=== PATIENT | male | born 1980 | race Caucasian/White ===

== ENCOUNTER → 2017-01-23 01:52 | Emergency (ER) | payer OTHER ==
[~2017-01-23 01:52] MED LIST: Haloperidol INJ IV/IM* 5 MG/ML AMP IM ONE; LORazepam INJ* 2 MG/ML 1 ML VIAL IM ONE; diPHENhydraMINE IV* 50 MG/ML 1 ml VIAL (BENADRYL) IM ONE
--- NOTE | 2017-01-23 06:07 | ED ---
Yash Madrigal Erika, scribed for Lawson Carbajal MD on 01/23/17 at 0252 . Substance Abuse/Use - HPI Summary HPI Summary: Patient is a 36-year-old male presenting to the ED as a 2208. EMS reports that patient was found in the street combative likely EtOH intoxicated and under the influence of marijuana. On arrival to the ED, pt attempted to flee. Hx bipolar disorder. LEVEL 5 CAVEAT - AMS. - History Of Current Complaint Stated Complaint: 2208 Time Seen by Provider: 01/23/17 01:53 Hx Obtained From: EMS Ingestion History: Type/Name Of Drug - EtOH/marijuana likely Severity Currently: Moderate Character: Angry - Allergies/Home Medications Allergies/Adverse Reactions: Allergies Allergy/AdvReac Type Severity Reaction Status Date / Time No Known Allergies Allergy Verified 02/17/15 17:26 PMH/Surg Hx/FS Hx/Imm Hx Endocrine/Hematology History: Denies: Hx Diabetes Cardiovascular History: Denies: Hx Congestive Heart Failure, Hx Hypertension History: Denies: Hx Renal Disease Musculoskeletal History: Reports: Hx Back Problems - Fractured back, Other Musculoskeletal History - Fractured neck Psychiatric History: Reports: Hx Bipolar Disorder Denies: Hx Eating Disorder, Hx of Violent Episodes Against Others - Surgical History Surgery Procedure, Year, and Place: 2011 shoulder operation secondary to rotator cuff tear - Family History Known Family History: Positive: Unknown - level 5 caveat - AMS - Social History Alcohol Use: Occasionally Alcohol Amount: RECENT INCREASE Hx Substance Use: Yes Substance Use Type: Reports: Heroin, Marijuana Substance Use Comment - Amount & Last Used: heroin used 10/17/13 Hx Tobacco Use: Yes Smoking Status (MU): Heavy Every Day Tobacco Smoker Review of Systems - ROS Summary Review of Systems Summary: LEVEL 5 CAVEAT - AMS Neurological: Other - Intoxicated Psychological: Other - Angry All Other Systems Reviewed And Are Negative: No Physical Exam Triage Information Reviewed: Yes Vital Signs On Initial Exam: Initial Vital Signs Temp 100.4 F 01/23/17 02:21 Pulse 121 01/23/17 02:21 Resp 20 01/23/17 02:21 BP 118/70 01/23/17 02:21 Pulse Ox 96 01/23/17 02:21 Vital Signs Reviewed: Yes Completion Of Physical Exam Limited Due To: Altered Mental Status, Level 5 Appearance: Positive: Well-Appearing Skin: Positive: Warm Head/Face: Positive: Normal Head/Face Inspection Eyes: Positive: CUBA ENT: Positive: Hearing grossly normal Neck: Positive: Supple Respiratory/Lung Sounds: Positive: Breath Sounds Present Cardiovascular: Positive: RRR Abdomen Description: Positive: No Organomegaly Bowel Sounds: Positive: Present Musculoskeletal: Positive: Strength/ROM Intact Neurological: Positive: Alert, Oriented to Person Place, Time Diagnostics - Vital Signs Vital Signs Temp Pulse Resp BP Pulse Ox 01/23/17 05:05 86 16 91/42 100 01/23/17 03:00 98 20 113/59 98 01/23/17 02:30 106 20 111/53 90 01/23/17 02:21 100.4 F 121 20 118/70 96 01/23/17 02:10 122 20 118/70 95 01/23/17 02:00 22 - Laboratory Lab Results: Lab Results 01/23/17 Range/Units 02:57 Serum Alcohol 288 H (<10) mg/dL Lab Statement: Any lab studies that have been ordered have been reviewed, and results considered in the medical decision making process. Course/Dx - Course Assessment/Plan: Pt presents as a 2209. Serum alcohol 288. Pt is combative in the ED so is given Benadryl, Haldol, and Ativan. Pt is observed in the ED and will be discharged home once sober. - Diagnoses Provider Diagnoses: Alcohol intoxication Discharge - Discharge Plan Condition: Stable Disposition: HOME Patient Education Materials: Alcohol Intoxication (ED) Referrals: [facility] [Outside] - 2 Days The documentation as recorded by the Yash lea Erika accurately reflects the service I personally performed and the decisions made by , Lawson Carbajal MD.
[2017-01-23 13:46] VITALS: BP 137/61
== END | disposition home or self-care (01) ==
LOC: ED 01:52
DX: F10.129 Alcohol abuse with intoxication, unspecified (principal); Y90.8 Blood alcohol level of 240 mg/100 ml or more
CPT/HCPCS: 36415; 80320; 96374; 96375; 99282; G0480; J1200; J1630; J2060